=== PATIENT | female | born 1955 | race African-American/Black ===

== ENCOUNTER 2022-06-19 14:47 | Emergency (ER) | payer OTHER, MEDICAID ==
[~2022-06-19 14:47] MED LIST: Iopamidol 370 76% 125 ML VIAL FS ONE
[2022-06-19 15:32] LABS: #Basophils 0.1 thou/uL (0.0-0.2); #Lymphocytes 1.1 thou/uL (1.20-3.40); #Monocytes 0.5 thou/uL (0.11-0.59); #Neutrophils 4.6 thou/uL (1.40-6.50); %Basophils 0.9 % (0.0-1.0); %Eosinophils 0.6 % (0.0-10.0); %Lymphocytes 17.7 % (21.0-51.0); %Monocytes 8.5 % (0.0-10.0); %Neutrophils 72.3 % (42.0-75.0); Hemoglobin 13.1 g/dL (12.0-16.0); INR-International Normal Ratio 1.1; Mean Corpuscular HGB CONC 34.3 g/dL (32.0-36.0); Mean Corpuscular Hemoglobin 30.1 pg (27.0-31.0); Mean Corpuscular Volume 87.7 fl (78.0-98.0); Mean Platelet Volume 7.9 fL (7.4-10.4); PTT 26.9 sec (22.9-36.1); Platelet Count 146 10x3/uL (130-400); Prothrombin Time 14.8 sec (12.0-14.7); RBC Distribution Width 11.6 % (11.5-14.5); Red Blood Cell (RBC) Count 4.37 mill/uL (4.20-5.40); White Blood Cell (WBC) Count 6.4 10x3/uL (4.8-10.8)
[2022-06-19 15:43] LABS: ALT (SGPT) 107 U/L (8-55); AST (SGOT) 91 U/L (5-34); Albumin 3.7 g/dL (3.4-4.8); Alkaline Phosphatase 89 U/L (40-110); Anion Gap 14 mmol/L (10-20); BUN (Urea Nitrogen) 20 mg/dL (9.8-20.1); Bilirubin, Total 0.6 mg/dL (0.2-1.2); Calc. Creatinine Clearance 0 mL/min (70-130); Calcium 8.6 mg/dL (7.8-10.44); Carbon Dioxide 22 mmol/L (23-31); Chloride 111 mmol/L (98-107); Estimated GFR 57; Globulin 3.6 g/dL (2.4-3.5); Glucose 131 mg/dL (80-115); Magnesium 1.5 mg/dL (1.6-2.6); Potassium 3.5 mmol/L (3.5-5.1); Protein, Total 7.3 g/dL (5.8-8.1); Sodium 143 mmol/L (136-145)
[2022-06-19] MEDS ORDERED: Magnesium 2 GM/50 ML BAG (IN WATER) ONE (16:08)
[2022-06-19] MEDS ORDERED: Fentanyl 100 MCG/2 ML VIAL ONE ×2 (17:09→19:01)
[2022-06-19] MEDS ORDERED: Ondansetron PF 4 MG/2 ML Vial ONE (19:01)
== END 2022-06-19 20:30 | disposition short-term general hospital (02) ==
LOC: MADERS 14:47
DX: S72.402A Unspecified fracture of lower end of left femur, initial encounter for closed fracture (principal); S82.142A Displaced bicondylar fracture of left tibia, initial encounter for closed fracture; S01.81XA Laceration without foreign body of other part of head, initial encounter; R07.9 Chest pain, unspecified; E83.42 Hypomagnesemia; I95.9 Hypotension, unspecified; R55 Syncope and collapse; I10 Essential (primary) hypertension; E11.9 Type 2 diabetes mellitus without complications; E03.9 Hypothyroidism, unspecified; E78.00 Pure hypercholesterolemia, unspecified; W18.30XA Fall on same level, unspecified, initial encounter; Z79.84 Long term (current) use of oral hypoglycemic drugs
CPT/HCPCS: 12011; 51702; 70450; 71275; 72125; 74177; 80053; 83735; 83880; 84484; 85025; 85610; 85730; 96365; 96375; 96376; G0390; J2405; J3010; J3475; Q9967